=== PATIENT | male | born 1935 ===

== ENCOUNTER 2020-09-07 11:59 | Emergency (ER) | payer MEDICARE ==
[~2020-09-07] VITALS: Ht 170.2 cm; Wt 74.8 kg
[~2020-09-07 11:59] MED LIST: CLON0.1T42 PO; LISI2.5T12 PO; LOV40I SUBQ
[2020-09-07 12:10] VITALS: BP 116/78
--- NOTE | 2020-09-07 12:30 | NUR ---
PT BIB SON C/O NAUSEA, VOMITINGX1 THIS MORNING, DRY COUGH X 2 MONS. PT ALSO REPORTS EPIGASTRIC DISCOMFORT W/O PAIN. DENIES CP, SOB, FEVER, DIARRHEA, ABDOMINAL PAIN, SORE THROAT, OR SICK CONTACT.
--- NOTE | 2020-09-07 12:35 | NUR ---
DR. STEVEN AT BEDSIDE TALKING TO PT
[2020-09-07 12:47] VITALS: BP 116/78
--- NOTE | 2020-09-07 12:47 | NUR ---
Patient discharged with v/s stable. Written and verbal after care instructions given and explained. Patient verbalized understanding. PT HARVEY TO LOBBY. All questions addressed prior to discharge. Advised to follow up with PMD.
== END 2020-09-07 12:47 | disposition home or self-care (01) ==
LOC: MED 11:59
DX: R11.10 Vomiting, unspecified (principal); R05 Cough; I10 Essential (primary) hypertension; Z79.899 Other long term (current) drug therapy
CPT/HCPCS: 99281

== ENCOUNTER 2020-11-22 21:34 | Inpatient (IN) | payer MEDICARE, SELFPAY ==
[~2020-11-22] VITALS: Ht 167.6 cm; Wt 74.8 kg
[2020-11-22 21:51] VITALS: BP 170/90
--- NOTE | 2020-11-22 21:53 | NUR ---
TO BED #02 AMBULATORY
--- NOTE | 2020-11-22 21:55 | NUR ---
PT AMBULATED TO BED #2
--- NOTE | 2020-11-22 22:00 | NUR ---
PATIENT PRESENTS TO ED WITH C/O A/P, CONSTIPATION, H/O SBO . PT STATES I HAVENT POOPED AND I HAVENT PASSED GAS.. DENIES N/V/D; SKIN IS PINK/WARM/DRY; AAOX4 WITH EVEN AND STEADY GAIT; LUNGS CLEAR BL; HR EVEN AND REGULAR; PT DENIES ANY FEVER, CP, SOB, OR COUGH AT THIS TIME; PATIENT STATES PAIN OF 0/10 AT THIS TIME; VSS; PATIENT POSITIONED FOR COMFORT; HOB ELEVATED; BEDRAILS UP X2; BED DOWN. ER MD MADE AWARE OF PT STATUS.
--- NOTE | 2020-11-22 22:10 | NUR ---
DR. OLMOS AT BEDSIDE FOR EXAM
--- NOTE | 2020-11-22 23:15 | NUR ---
LABS BEING DRAWN
[2020-11-22 23:22] LABS: BASOPHILS % (AUTO) 0.8 % (0.0-2.0); EOSINOPHILS # (AUTO) 0.1 K/uL (0-0.4); EOSINOPHILS % (AUTO) 1.6 % (0.0-4.0); HEMATOCRIT 41.2 % (36-52); HEMOGLOBIN 13.7 g/dL (12.0-18.0); LYMPHOCYTES # (AUTO) 1.6 K/uL (2.0-11.5); LYMPHOCYTES % (AUTO) 32.2 % (20.5-51.1); MEAN CORPUSCULAR HEMOGLOBIN 27 pg (27-31); MEAN CORPUSCULAR HGB CONC 33 g/dL (33-37); MONOCYTES # (AUTO) 0.4 K/uL (0.8-1.0); MONOCYTES % (AUTO) 7.4 % (1.7-9.3); PLATELET COUNT (AUTO) 185 K/uL (140-450); RED BLOOD CELL COUNT(AUTO) 5.03 MIL/uL (4.20-6.10); RED CELL DISTRIBUTION WIDTH 14.3 % (11.6-13.7); WHITE BLOOD COUNT (AUTO) 5.1 K/uL (4.8-10.8)
[2020-11-22 23:41] LABS: ALBUMIN 3.8 g/dL (3.4-5.0); ASPARTATE AMINOTRANSFERASE 13 U/L (15-37); CHLORIDE 105 mmol/L (98-107); CREATININE 1.1 mg/dL (0.6-1.3); GLUCOSE 104 mg/dL (74-106); LIPASE 276 U/L (73-393); POTASSIUM 3.8 mmol/L (3.5-5.1); SODIUM SERUM 139 mmol/L (136-145); TOTAL BILIRUBIN 0.6 mg/dL (0.0-1.0); UREA NITROGEN, BLOOD 16 mg/dL (7-18)
[2020-11-22 23:46] LABS: ANION GAP 9.1 (8-16); CARBON DIOXIDE 28.7 mmol/L (21-32)
--- NOTE | 2020-11-23 00:20 | NUR ---
20 [address] ESTABLISHED RIGHT A/C
--- NOTE | 2020-11-23 00:25 | NUR ---
CONSENT SIGNED FOR CT ANGIO
--- NOTE | 2020-11-23 00:52 | NUR ---
TO CT VIA [facility]
--- NOTE | 2020-11-23 01:10 | NUR ---
RETURNED FROM CT
[2020-11-23 01:39] LABS: APPEARANCE,URINE CLEAR (CLEAR); BILIRUBIN,URINE NEGATIVE (NEGATIVE); BLOOD, URINE 1+ (NEGATIVE); COLOR,URINE YELLOW (YELLOW); LEUKOCYTE ESTERASE ,URINE NEGATIVE (NEGATIVE); NITRITE, URINE NEGATIVE (NEGATIVE); UGLUCOSE NEGATIVE (NEGATIVE)
[2020-11-23 01:50] LABS: RBC,URINE 0-5 /HPF (0-5); WBC,URINE NONE SEEN /HPF (0-5)
[2020-11-23] MEDS ORDERED: KETOROLAC 30 MG/ML VIAL IVP ONE (03:45)
--- NOTE | 2020-11-23 03:45 | NUR ---
MEDICATED ORDERED FOR PAIN 02/14
--- NOTE | 2020-11-23 03:52 | NUR ---
PT TO BE ADMITTED. WARM BLANKETS GIVEN
[2020-11-23] MEDS ORDERED: LORazepam 2 MG/ML VIAL IVP PRN (04:30)
[2020-11-23] MEDS ORDERED: ONDANSETRON 4 MG/2 ML VIAL IVP PRN (04:30)
[2020-11-23] MEDS ORDERED: AMLO1TAB36 PO (04:55)
[2020-11-23] MEDS ORDERED: PIPERACILLIN/TAZOBACTAM 3.375 GM VIAL IV ONE (05:01)
[2020-11-23] MEDS: NACL 0.9% 1,000 ML IV SCH ×2 (05:12→14:30)
[2020-11-23] MEDS: PIPERACILLIN/TAZOBACTAM 3.375 GM in DEXTROSE 5% 50 ML IV SCH ×3 (05:13→20:59)
--- NOTE | 2020-11-23 05:15 | NUR ---
MED REC AND BELONGINGS LIST COMPLETED
--- NOTE | 2020-11-23 07:18 | NUR ---
Report received from CORA Goodson, transfer of care at this time.
--- NOTE | 2020-11-23 07:37 | NUR ---
MRSA swab collected and walked to lab.
--- NOTE | 2020-11-23 08:03 | NUR ---
Per pt Makenna Joshua "daughter" is decision maker. Home [phone]
--- NOTE | 2020-11-23 08:10 | NUR ---
HANDOFF REPORT RECEIVED FROM ER NURSE.
--- NOTE | 2020-11-23 08:12 | NUR ---
Gave report to CORA Peterson for pending admission 120B.
--- NOTE | 2020-11-23 08:21 | NUR ---
PATIENT HAS BEEN SCREENED AND CATEGORIZED MODERATE NUTRITION RISK. PATIENT WILL BE SEEN WITHIN 3-5 DAYS OF ADMISSION. 11/26/20 - 11/28/[address]
--- NOTE | 2020-11-23 08:35 | NUR ---
Patient will be admitted to care of [facility]. Admited to [facility]. Will go to room 120B. Belongings list completed. Report to CORA Peterson.
--- NOTE | 2020-11-23 09:30 | NUR ---
RECEIVED PT FROM ER. ACCOMPANIED BY ER NURSE ROSALES. PT IS RESTING AND CALM. NO SOB. AFEBRILE. PT STATED RUQ ABDOMINAL. 8/10 PAIN SCALE. DENIES NAUSEA OR VOMITING. HEALTH HX TAKING DONE VERBALIZED BY PATIENT. IV FLUIDS CONTINUED. PIV INTACT. SKIN INTACT. NEEDS ATTENDED. CALL LIGHT WITHIN REACH.
[2020-11-23] MEDS: ENOXAPARIN 40 MG/0.4 ML SYR SUBQ SCH (09:46)
--- NOTE | 2020-11-23 10:00 | NUR ---
KEPT PT NPO PER MD ORDER.
--- NOTE | 2020-11-23 11:56 | NUR ---
DC PLANN[age] YRS OLD MALE PATIENT WAS ADMITTED FROM HOME WITH A DX OF CHOLECYSTITIS. CT ABD/PELVIS SHOWED DISTENDED GALL BLADDER, RAPID COVID TEST NEGATIVE. ADMINISTERED IVF, IV ABX ZOSYN AND MORPHINE FOR PAIN. CONSULTED WITH DR CHEN SURGEON. DC PLAN TO GO HOME WHEN STABLE CM TO FOLLOW
[2020-11-23 12:00] VITALS: BP 102/63
--- NOTE | 2020-11-23 12:00 | NUR ---
PT IS RESTING AND CALM. NO S/S DISTRESS. WILL CONTINUE TO MONITOR.
[2020-11-23 16:00] VITALS: BP 110/72
--- NOTE | 2020-11-23 16:00 | NUR ---
NO CHANGE OF CONDITION. DENIES DISCOMFORT OR PAIN. KEPT PT RESTED.
[2020-11-23] MEDS: MORPHINE SULFATE 2 MG/ML SYR IVP PRN ×2 (17:50→22:34)
--- NOTE | 2020-11-23 19:10 | NUR ---
ENDORSED PATIENT TO CARGO AND CONTAINER INSPECTOR RN. POC REVIEWED. NO CHANGES OF CONDITION.
--- NOTE | 2020-11-23 19:35 | NUR ---
RECEIVED BEDSIDE REPORT FROM DAY SHIFT NURSE. PATIENT AWAKE, RESPIRATION EVEN UNLABORED ON ROOM AIR. NO DISTRESS NOTED. SKIN IS WARM AND DRY. IV PATENT AND INTACT PLAN OF CARE WAS DISCUSSED. ALL SAFETY MEASURES IN PLACE. BED IS AT LOW POSITION. CALL LIGHT WITHIN REACH. WILL CONTINUE TO MONITOR
[2020-11-23 20:00] VITALS: BP 146/67
--- NOTE | 2020-11-23 21:00 | NUR ---
ALL SCHEDULED MEDS WERE GIVEN PER ORDER. NO ASE NOTED. WILL CONTINUE TO MONITOR
--- NOTE | 2020-11-23 21:17 | NUR ---
PER DR. PORTILLO CHEN AFTER HIDA SCAN PLACE PATIENT ON CLEAR LIQUID DIET AND THEN NPO AFTERNOON TOMORROW.
--- NOTE | 2020-11-23 21:21 | NUR ---
DR. PORTILLO CHEN AT BEDSIDE.
--- NOTE | 2020-11-23 21:25 | NUR ---
PATIENT LEFT THE FACILITY FOR HIDA SCAN
--- NOTE | 2020-11-23 22:34 | NUR ---
MORPHINE GIVEN FOR HIDA SCAN PROCEDURE
--- NOTE | 2020-11-24 00:15 | NUR ---
PATIENT IS BACK FROM HIDA SCAN. VITALS WERE TAKEN. NO DISTRESS NOTED. WILL CONTINUE TO MONITOR
[2020-11-24] MEDS: NACL 0.9% 1,000 ML IV SCH ×3 (00:30→20:30)
--- NOTE | 2020-11-24 01:30 | NUR ---
PATIENT LEFT THE UNIT FOR HIDA SCAN
--- NOTE | 2020-11-24 01:51 | NUR ---
PATIENT IS BACK FROM HIDA SCAN. VITALS WERE TAKEN. NO DISTRESS NOTED
--- NOTE | 2020-11-24 03:30 | NUR ---
MADE ROUNDS. PATIENT SLEEPING RESPIRATION EVEN UNLABORED ON ROOM AIR. NO DISTRESS NOTED. WILL CONTINUE TO MONITOR
[2020-11-24 04:00] VITALS: BP 141/71
[2020-11-24] MEDS: PIPERACILLIN/TAZOBACTAM 3.375 GM in DEXTROSE 5% 50 ML IV SCH ×3 (04:33→20:18)
--- NOTE | 2020-11-24 04:55 | NUR ---
MORNING CARE PROVIDED
[2020-11-24 06:19] LABS: BASOPHILS % (AUTO) 0.2 % (0.0-2.0); HEMATOCRIT 39.3 % (36-52); HEMOGLOBIN 13.3 g/dL (12.0-18.0); LYMPHOCYTES # (AUTO) 0.8 K/uL (2.0-11.5); LYMPHOCYTES % (AUTO) 18.1 % (20.5-51.1); MEAN CORPUSCULAR HEMOGLOBIN 27 pg (27-31); MEAN CORPUSCULAR HGB CONC 34 g/dL (33-37); MONOCYTES # (AUTO) 0.5 K/uL (0.8-1.0); MONOCYTES % (AUTO) 10.1 % (1.7-9.3); NEUTROPHILS # (AUTO) 3.3 K/uL (1.8-7.7); NEUTROPHILS % (AUTO) 70.6 % (42.2-75.2); PLATELET COUNT (AUTO) 175 K/uL (140-450); RED BLOOD CELL COUNT(AUTO) 4.86 MIL/uL (4.20-6.10); RED CELL DISTRIBUTION WIDTH 13.7 % (11.6-13.7); WHITE BLOOD COUNT (AUTO) 4.7 K/uL (4.8-10.8)
[2020-11-24 07:03] LABS: ALBUMIN 3.3 g/dL (3.4-5.0); ASPARTATE AMINOTRANSFERASE 157 U/L (15-37); CHLORIDE 107 mmol/L (98-107); GLUCOSE 97 mg/dL (74-106); MAGNESIUM 1.9 mg/dL (1.8-2.4); SODIUM SERUM 143 mmol/L (136-145); TOTAL BILIRUBIN 1.4 mg/dL (0.0-1.0); UREA NITROGEN, BLOOD 9 mg/dL (7-18)
--- NOTE | 2020-11-24 07:24 | NUR ---
ENDORSED PATIENT TO DAY SHIFT NURSE FOR CONTINUITY OF CARE.
[2020-11-24 08:00] VITALS: BP 134/67
--- NOTE | 2020-11-24 08:00 | NUR ---
RECEIVED REPORT FROM DENTURE FINISHER FOR CONTINUITY OF CARE. PATIENT ALERT AWAKE ORIENTED X4. DENIES PAIN, NO NAUSEA AND VOMITING NOTED. ATE BREAKFAST CLEAR LIQUID DIET AND INSTRUCTED PATIENT TO KEEP NPO AFTER. IVF ON GOING AND INFUSING WELL. WILL CONTINUE TO MONITOR.
[2020-11-24] MEDS: ENOXAPARIN 40 MG/0.4 ML SYR SUBQ SCH (09:00)
[2020-11-24] MEDS ORDERED: BUPIVACAINE-MPF/EPI 0.25% 10 ML VIAL INJ ONE (10:30)
--- NOTE | 2020-11-24 11:21 | NUR ---
PATIENT ON SCHEDULE TO OR. SURGICAL CHECKLIST INITIATED. WILL CONTINUE TO MONITOR.
--- NOTE | 2020-11-24 14:02 | NUR ---
LIGHTER CAPTAIN NOTE: Patient's Orientation Unable To Assess Information Provided By SANDY MENJIVAR - DAUGHTER Comments SW WAS UNABLE TO MEET PATIENT AT BEDSIDE. SW COMPLETED ASSESSMENT WITH PATIENT'S DAUGHTER. Insurance Claims Representative, Realtionship and Phone Number SANDY QUARLES [phone] Healthcare Power of Flooring Mechanic No Does Patient Have a POLST No Identifying Problems No Social Work Triggers Is A Social Work Consult Needed No Mandate Report Filed No Explanation Of Identifying Problems PATIENT IS AN 85-YEAR-OLD MALE ADMITTED FOR CHOLECYSTITIS. PATIENT HAS PMHX OF HTN. Admitted From Home Pre-Admission Level Of Functioning Status Independent/Ambulatory Prior Resources/Services Used In Last 12 Months No Prior Resources Used Prior DME No Prior DME Used Dialysis Comments N/A Living Situation Lives With Family House Patient Had Caregiver No Home Support No Caregiver Issues Financial Issues No Known Financial Issue Referral To The Financial Counselor Needed No Factors/Needs No D/C Needs Identified Pt/Rep Participated In Discharge Plan Yes Patient/Family Agress With Discharge Plan Yes Discharge Plan Comments TENTATIVE DISCHARGE PLAN IS FOR PATIENT TO RETURN HOME. DC Plan Status Initiated
[2020-11-24] MEDS ORDERED: LIDOCAINE 2% 100 MG/5 ML SYR IVP ONE (16:06)
[2020-11-24] MEDS ORDERED: fentaNYL citrate 0.05 MG/ML VIAL ONE (16:06)
[2020-11-24] MEDS ORDERED: SUCCINYLCHOLINE CHLORIDE 200 MG/10 ML VIAL IVP ONE (16:06)
[2020-11-24] MEDS ORDERED: PROPOFOL 200 MG/20 ML VIAL IV ONE (16:06)
[2020-11-24] MEDS ORDERED: ROCURONIUM 50 MG/5 ML VIAL IV ONE (16:06)
[2020-11-24] MEDS ORDERED: KETOROLAC 15 MG/ML VIAL ONE (16:06)
[2020-11-24] MEDS ORDERED: DEXAMETHASONE 4 MG/ML VIAL ONE (16:06)
[2020-11-24] MEDS ORDERED: MIDAZOLAM 2 MG/2 ML VIAL ONE (16:06)
[2020-11-24] MEDS ORDERED: SEVOFLURANE 250 ML BTL INH ONE (16:06)
--- NOTE | 2020-11-24 16:16 | NUR ---
PATIENT OFF FLOOR, WENT TO SURGERY, ALERT AWAKE ORIENTED X4. NOT IN ANY DISTRESS NOTED.
[2020-11-24] MEDS ORDERED: ONDANSETRON 4 MG/2 ML VIAL IVP PRN (17:30)
[2020-11-24] MEDS ORDERED: MEPERIDINE 25 MG/ML SYR IVP PRN (17:30)
[2020-11-24] MEDS ORDERED: HYDROmorphone 1 MG/ML AMP IVP PRN ×2 (17:30→18:15)
[2020-11-24] MEDS: LACTATED RINGERS 1,000 ML IV SCH (17:30)
[2020-11-24] MEDS ORDERED: HYDROcodone/APAP 5/325 MG 1 TAB TAB PO PRN (18:15)
[2020-11-24] MEDS ORDERED: hydrALAZINE 20 MG/ML VIAL ONE (18:55)
[2020-11-24] MEDS ORDERED: hydrALAZINE 20 MG/ML VIAL IVP PRN (19:05)
--- NOTE | 2020-11-24 19:40 | NUR ---
RECEIVED REPORT FROM OR NURSE. PATIENT IS AWAKE, ALERT, AND COOPERATIVE. VITALS WERE TAKEN. PATIENT IS S/P LAP KASANDRA, 4 INCISION NOTED WITH DERMABOND. RESPIRATION EVEN UNLABORED ON ROOM AIR. NO DISTRESS NOTED. SKIN IS WARM AND DRY. IV PATENT AND INTACT. PLAN OF CARE WAS DISCUSSED. ALL SAFETY MEASURE IN PLACE. BED IS AT LOW POSITION. CALL LIGHT WITHIN REACH. WILL CONTINUE TO MONITOR.
[2020-11-24 20:00] VITALS: BP 138/50
--- NOTE | 2020-11-24 20:20 | NUR ---
ALL SCHEDULED MEDS WERE GIVEN PER ORDER. WILL CONTINUE TO MONITOR.
[2020-11-24] MEDS: MORPHINE SULFATE 2 MG/ML SYR IVP PRN (21:13)
--- NOTE | 2020-11-24 21:13 | NUR ---
PATIENT COMPLAINED OF ABDOMINAL PAIN 6/. PRN PAIN MED ADMINISTER PER ORDER. WILL CONTINUE TO MONITOR.
--- NOTE | 2020-11-25 02:10 | NUR ---
MADE ROUNDS. PATIENT SLEEPING RESPIRATION EVEN UNLABORED ON ROOM AIR. NO DISTRESS NOTED. WILL CONTINUE TO MONITOR
[2020-11-25 04:00] VITALS: BP 139/65
[2020-11-25] MEDS: PIPERACILLIN/TAZOBACTAM 3.375 GM in DEXTROSE 5% 50 ML IV SCH ×2 (04:26→13:16)
--- NOTE | 2020-11-25 04:45 | NUR ---
MORNING CARE PROVIDED
[2020-11-25] MEDS: NACL 0.9% 1,000 ML IV SCH (06:30)
--- NOTE | 2020-11-25 07:18 | NUR ---
ENDORSED PATIENT TO DAY SHIFT NURSE FOR CONTINUITY OF CARE
--- NOTE | 2020-11-25 07:20 | NUR ---
REC'D BEDSIDE ENDORSEMENT FROM NIGHTSHIFT NURSE FOR CONTINUITY OF CARE
[2020-11-25] MEDS: ENOXAPARIN 40 MG/0.4 ML SYR SUBQ SCH (08:41)
--- NOTE | 2020-11-25 08:51 | NUR ---
ADMINISTERED PRESCRIBED MEDS ORDERED BY MD. PATIENT TOLERATED WELL. MEDICATION EDUCATION PROVIDED. PATIENT VERBALIZED UNDERSTANDING. SAFETY MEASURES IN PLACE. WILL CONT TO MONITOR.
[2020-11-25] MEDS: LACTATED RINGERS 1,000 ML IV SCH ×2 (10:10→10:20)
--- NOTE | 2020-11-25 10:20 | NUR ---
REC'D CALL FROM PATIENT BROTHER NIKKI [phone], WANTED UPDATE ON PATIENT STATUS. PATIENT GAVE OK TO DISCUSS MATTERS W/ ANY FAMILY MEMBER. ROOM PHONE PROVIDED TO PATIENT.
--- NOTE | 2020-11-25 13:16 | NUR ---
ADMINISTERED PRESCRIBED MEDS PER MD ORDER. PATIENT TOLERATED WELL. MEDICATION EDUCATION PROVIDED. PATIENT VERBALIZED UNDERSTANDING. MD IN ROOM W/ PATIENT DISCUSSING POSSIBLE D/C.
[2020-11-25 15:36] VITALS: BP 158/67
--- NOTE | 2020-11-25 16:48 | NUR ---
PATIENT IS DISCHARGED. PATIENT REVIEWED AND SIGNED DISCHARGE PAPERWORK. PATIENT HAS MD RX W/ PAPERWORK, VERBALIZED UNDERSTANDING OF MATERIAL. REMOVED IV LINE AND ID BAND. PATIENT CHANGED INTO PERSONAL CLOTHES AND GATHERED ALL PERSONAL BELONGINGS. INCISIONAL PICTURES TAKEN. ESCORTED PATIENT TO FRONT OF HOSPITAL WHERE HE WAS PICKED UP BY FAMILY, PATIENT IS STABLE.
== END 2020-11-25 16:48 | disposition home or self-care (01) | DRG 419 ==
LOC: MED 21:34 → MTU 11-23 04:31
PROVIDERS: ADMIT Internal Medicine; ATTEND Internal Medicine
PROC: 0FT44ZZ Resection of Gallbladder, Percutaneous Endoscopic Approach (ICD-10-PCS; principal; 2020-11-24 17:00)
DX: K81.0 Acute cholecystitis (principal); Z20.822 Contact with and (suspected) exposure to COVID-19; I10 Essential (primary) hypertension; Z79.899 Other long term (current) drug therapy; Z90.49 Acquired absence of other specified parts of digestive tract; N40.0 Benign prostatic hyperplasia without lower urinary tract symptoms; K76.0 Fatty (change of) liver, not elsewhere classified; R16.0 Hepatomegaly, not elsewhere classified; K44.9 Diaphragmatic hernia without obstruction or gangrene
CPT/HCPCS: 36415; 71045; 78445; 80053; 81001; 83690; 83735; 85025; 87081; 93005; 96374; 96375; 99285; J0330; J0360; J1100; J1650; J1885; J2001; J2250; J2270; J2543; J2704; J3010; J3490; J7030; J7060; Q9967